=== PATIENT | female | born 1950 | race Caucasian/White ===

== ENCOUNTER 2024-09-04 17:26 | Emergency (ER) | payer OTHER ==
[2024-09-04 17:37] VITALS: BP 135/72; PULSE 86; RESP 20; TEMP 97.9; BMI 25.6
[2024-09-04] MEDS ORDERED: KETOROLAC TROMETHAMINE 30 MG/1 ML VIAL ONE (18:45)
[2024-09-04] MEDS: KETOROLAC TROMETHAMINE 30 MG/1 ML VIAL IM ONE (18:54)
== END 2024-09-04 20:03 | disposition home or self-care (01) ==
LOC: JERFT 17:26
PROC: 3E0233Z Introduction of Anti-inflammatory into Muscle, Percutaneous Approach (ICD-10-PCS; principal; 2024-09-04)
DX: M17.12 Unilateral primary osteoarthritis, left knee (principal); M25.562 Pain in left knee
CPT/HCPCS: 73562-TC-LT-FY; 96372; 99284-25